=== PATIENT | female | born 1965 | race Caucasian/White ===

== ENCOUNTER 2016-11-17 08:37 | Day surgery (SDC) | payer BC ==
[~2016-11-17] VITALS: Ht 203.2 cm; Wt 90.3 kg
[2016-11-17] MEDS ORDERED: LR 1,000 ML IV SCH (11:19)
[2016-11-17] MEDS ORDERED: METOCLOPRAMIDE HCL 10 MG/2 ML VIAL IVP PRN (11:30)
[2016-11-17] MEDS ORDERED: OXYCODONE/ACETAMINOPHEN 5-325 TABLET PO PRN ×2 (11:30)
[2016-11-17] MEDS ORDERED: MORPHINE 4 MG/ML INJ. SYRINGE IVP PRN ×3 (11:30)
[2016-11-17] MEDS ORDERED: IBUPROFEN 800 MG TABLET PO PRN (11:30)
[2016-11-17] MEDS ORDERED: ONDANSETRON HCL 4 MG/2 ML VIAL IVP PRN (11:30)
[2016-11-17 12:35] VITALS: BP_SYST 102
[2016-11-17] MEDS ORDERED: KETOROLAC TROMETHAMINE 30 MG VIAL ONE (14:00)
[2016-11-17] MEDS ORDERED: LR 1,000 ML IV.SOLN IV ONE (14:00)
[2016-11-17] MEDS ORDERED: fentaNYL CITRATE/PF 100 MCG/2 ML AMP ONE (14:00)
[2016-11-17] MEDS ORDERED: MIDAZOLAM HCL 5 MG/5 ML VIAL ONE (14:00)
[2016-11-17] MEDS ORDERED: NS IRRIG SOLN 1000 ML IR ONE (14:00)
[2016-11-17] MEDS ORDERED: PROPOFOL 200MG/ 20ML VIAL (DIPRIVAN) IV ONE (14:00)
[2016-11-17] MEDS ORDERED: ONDANSETRON HCL 4 MG/2 ML VIAL ONE (14:00)
--- NOTE | 2016-11-17 14:22 | NUR ---
[employer]INE[employer] faxed pt's discharge order to [employer] [employer] ([phone]).
== END 2016-11-17 13:15 | disposition home or self-care (01) ==
LOC: SDS 08:37 → SMU 08:38 → SDS 13:15
PROVIDERS: ATTEND Obstetrics & Gynecology
DX: N84.0 Polyp of corpus uteri (principal); I10 Essential (primary) hypertension; E66.01 Morbid (severe) obesity due to excess calories; Z68.31 Body mass index [BMI] 31.0-31.9, adult
CPT/HCPCS: 36415; 58563; 86886; 86900; 86901; 88305; J7120; J1885; J2250; J2405; J2704; J3010